=== PATIENT | female | born 1965 | race Caucasian/White ===

== ENCOUNTER 2019-01-12 08:52 | Emergency (ER) | payer OTHER ==
[~2019-01-12] VITALS: Ht 162.6 cm; Wt 93.0 kg
[2019-01-12] MEDS ORDERED: ATORVASTATIN CA20 MG PO (09:15)
[2019-01-12] MEDS ORDERED: SERTRALINE HCL100 MG PO (09:15)
[2019-01-12] MEDS ORDERED: NORCO 5-325 TA1 EAC1 PO (09:52)
[2019-01-12 10:04] VITALS: BP 136/78
== END 2019-01-12 10:05 | disposition home or self-care (01) ==
LOC: ER 08:52
DX: S52.501A Unspecified fracture of the lower end of right radius, initial encounter for closed fracture (principal); W01.0XXA Fall on same level from slipping, tripping and stumbling without subsequent striking against object, initial encounter; Y93.89 Activity, other specified; Y92.89 Other specified places as the place of occurrence of the external cause; Y99.8 Other external cause status